=== PATIENT | female | born 1965 | race Caucasian/White ===

== ENCOUNTER 2018-03-24 16:15 | Emergency (ER) | payer SELFPAY ==
[~2018-03-24] VITALS: Ht 160 cm; Wt 72.6 kg
--- OUTSIDE RECORDS SUMMARY | 2018-03-24 16:18 | XMS REPORT ---
[facility] Address Unknown Phone Unavailable Care Team Providers Care Machine Assistant Name Role Phone ANGELIA MCWILLIAMS Unavailable Unavailable DR LUNA HUMPHREY Unavailable Unavailable DR Marlon SALETR Unavailable Unavailable Cris VELASQUEZ Unavailable Unavailable Payers Payer Name Policy Type Policy Number Effective Date Expiration Date Problems This patient has no known problems. Allergies, Adverse Reactions, Alerts Allergy Name Allergy Type Status Severity Reaction(s) Onset Date Inactive Date Treating Clinician Comments No Known Allergies DA Active U 2018-02-22 00:00:00 No Known Allergies DA Active U 2018-02-20 00:00:00 No Known Allergies DA Active U 2011-08-30 00:00:00 Medications This patient has no known medications. Encounters Start Date/Time End Date/Time Encounter Type Admission Type Attending Clinicians Care Facility Care Department Encounter ID 2016-12-10 08:30:00 Inpatient C ANGELIA MCWILLIAMS [facility] [id number] 2017-04-26 15:26:00 2017-04-26 16:04:00 Emergency E LUNA HUMPHREY [facility] [id number] Results Test Description Test Time Test Comments Text Results Atomic Results Result Comments COMPREHENSIVE METABOLIC STEWART 2017-01-30 13:11:00 GLUCOSE (test code=06D) 122 mg/dL 75-100 SODIUM (test code=01A) 141 mmol/L 136-145 POTASSIUM (test code=01B) 3.8 mmol/L 3.6-5.1 CHLORIDE (test code=04A) 105 mmol/L 98-107 CO2 (test code=02A) 31 mmol/L 22-32 ANION GAP (test code=ANG) 8.8 mmol/L BUN (test code=05D) 8 mg/dL 7-18 CREATININE (test code=03E) 0.8 mg/dL 0.4-1.1 BUN/CREA (test code=BCR) 10 12-20 CALCIUM (test code=09D) 9.2 mg/dL 8.3-9.5 BILI TOTAL (test code=11A) 0.3 mg/dL 0.2-1.0 PROTEIN (test code=07D) 7.4 g/dL 6.4-8.2 ALBUMIN (test code=08D) 4.1 g/dL 3.5-4.8 GLOBULIN (test code=GLB) 3.3 g/dL 1.5-3.8 ALB/GLOB (test code=AGRR) 1.2 1.0-2.6 ALK PHOS (test code=35A) 81 IU/L 42-121 AST (test code=30A) 13 IU/L <=42 ALT (test code=31A) 16 IU/L <=78 AMYLASE AND [id number] 13:07:00* Test Item Value Reference Range Comments AMYLASE (test code=10A) 59 U/L 28-100 LIPASE (test code=60A) 94 IU/L 73-393 CT STONE PROTOCOL [id number] 12:56:29CT ABDOMEN AND PELVIS WITHOUT CONTRAST, RENAL STONE PROTOCOL:Location code: [id number] HISTORY: Left flank painCOMPARISON: NoneTECHNIQUE: Helical CT of the abdomen and pelvis was performed withoutcontrast. Thin section axial, sagittal and coronal images were obtained. Oneor more of the following dose reduction techniques were used: Automatedexposure control, adjustment of the mA and or KV according to patient size,and/or utilization of iterative reconstruction technique. DLP: 68 mGy- cm.FINDINGS: Right-sided 3 mm nonobstructing stone noted. No evidence of left- sidednephrolithiasis. No obstruction or hydronephrosis.2 cm hypodense lesion seen in the right adrenal gland consistent with adenoma.Liver, spleen, pancreas, gallbladder, and left adrenal are unremarkable.The unopacified loops of bowel demonstrate no focal thickening or dilatation.No thickened appendix. There is no free intraperitoneal air or fluid. The abdominal aorta is normal in caliber and contour. There is noretroperitoneal adenopathy or mass. The urinary bladder is unremarkable.There is no pelvic mass or fluid collection. Mild degenerative changes are present throughout the spine. The skin andsurrounding soft tissues are unremarkable. IMPRESSION:2 cm likely right adrenal adenoma. Follow-up CT in 6 months recommended. MRImay be of further benefit.3 mm nonobstructing stone in the lower pole of the right kidney.CBC (INCLUDES AUTOMATED DIFFERENTIAL) 2017-01-30 12:53:00* Test Item Value Reference Range Comments WBC (test code=WBC) 6.9 10\S\3/uL 4.5-11.0 RBC (test code=RBC) 4.57 10\S\6/uL 4.20-5.60 HGB (test code=HBG) 15.2 g/dL 12.0-15.5 HCT (test code=HCT) 43.8 % 35.0-44.0 MCV (test code=MCV) 95.8 fL 81.0-99.0 MCH (test code=MCH) 33.3 pg 27.0-31.0 MCHC (test code=MCHC) 34.7 g/dL 32.0-36.0 RDW (test code=RDW) 14.5 % 11.5-14.5 PLT (test code=PLT) 281 10\S\3/uL 130-400 MPV (test code=MPV) 9.3 fL 9.4-12.4 NEUTROP # (test code=NE#) 4.7 10\S\3/uL 1.6-8.0 LYMPH # (test code=LY#) 1.7 10\S\3/uL 1.1-3.5 MONOCYTE # (test code=MO#) 0.3 10\S\3/uL 0.0-1.1 EOSINOPH # (test code=EO#) 0.2 10\S\3/uL 0.0-0.7 BASOPHIL # (test code=BA#) 0.0 10\S\3/uL 0.0-0.3 IG # (test code=IG#) 0.02 10\S\3/uL 0.00-0.06 NRBC # (test code=NRBC#) 0.00 10\S\3/uL 0.00-0.01 NEUTROPH % (test code=NE%) 68.2 % 35.0-73.0 LYMPH % (test code=LY%) 24.1 % 20.0-55.0 MONO % (test code=MO%) 4.4 % 2.5-10.0 EOSINOPH % (test code=EO%) 2.6 % 0.0-5.0 BASOPHIL % (test code=BA%) 0.4 % 0.0-2.0 IG % (test code=IG%) 0.3 % 0.0-0.8 NRBC% (test code=NRBC%) 0.0 % 0.0-0.2 MANDIFF (test code=MDIFF) NO NO RBC MORPH (test code=RBCMOR) NORMAL [id number] 12:53:00* Test Item Value Reference Range Comments COLOR (test code=COLU) YELLOW YELLOW CLARITY (test code=CLA) CLEAR CLEAR GLUCOSE UR (test code=UA GLUCOSE) NEGATIVE NEGATIVE BILI UR (test code=BILE) NEGATIVE NEGATIVE KETONES UR (test code=DONA) NEGATIVE NEGATIVE SP GRAVITY (test code=SPGR) 1.021 1.005-1.030 PH UR (test code=PH) 6.5 4.5-8.0 PROTEIN UR (test code=PU) NEGATIVE NEGATIVE UROBIL UR (test code=UROQ) 0.2 EU/dL 0.2-1.0 NITRITE UR (test code=NITRITE) NEGATIVE NEGATIVE BLOOD UR (test code=UA BLOOD) NEGATIVE NEGATIVE LEUK ES UR (test code=LEUK) NEGATIVE NEGATIVE XR RIBS BILAT 4VWS W/PA [id number] 11:34:47Exam: Bilateral RIBS with PA chestLocation: [id number]: fallFindings:Chest PA: The lungs are clear. No infiltrate or effusion is seen. The pulmonaryvasculature is normal. The heart size is normal. The mediastinal silhouette isunremarkable.Bilateral ribs: No rib fracture is seen. The bony cortices are intact. The softtissues are normal.Impression:Unremarkable exam.XR PELVIS AP 1 [id number] 11:32:49Exam: AP pelvis.Location: [id number]: fallFINDINGS: No significant bone or joint abnormality is seen. The bonycortices are intact. The joint spaces are well preserved. The soft tissuesare normal.Impression:Unremarkable exam.XR KNEE LEFT 3 [id number] 11:32:27Exam: Left knee 3 views AP, lateral and oblique.Location: [id number]: knee pain s/p fallFINDINGS: No significant bone or joint abnormality is seen. The bonycortices are intact. The joint spaces are well preserved. The soft tissuesare normal.Impression:Unremarkable exam.XR KNEE RIGHT 3 [id number] 11:32:12Exam: Right knee 3 views 3 views AP, lateral and oblique.Location: [id number]: knee pain s/p fallFINDINGS: No significant bone or joint abnormality is seen. The bonycortices are intact. The joint spaces are well preserved. The soft tissuesare normal.Impression:Unremarkable exam.CT CERVICAL SPINE W/O [id number] 11:26:45Exam: CT C-spine.Location: [id number]: fallTechnique: Unenhanced spiral slices were taken through the cervical spine.Sagittal and coronal reformations were performed. One or more of the followingradiation dose reduction techniques was used: automated exposure control,adjustment of mA and/or KV according to patient size, and/or utilization ofiterative reconstruction technique.Findings:No fracture or dislocation is seen. The bony cortices are intact. Changes ofspondylosis and osteoarthritis are present. Postoperative changes are seen atC4-C6. The vertebral bodies demonstrate normal heights and alignment. Thesurrounding soft tissues are normal.C1-C2: Unremarkable.C2-C3: A 2 mm posterior osteophyte-disc complex is present encroaching upon theventral canal. The neural foramina are patent.C3-C4: Postoperative changes are noted. No canal stenosis or foraminalnarrowing.C4-C5: Postoperative changes are noted. A 3 mm posterior osteophyte-disccomplex is present. No canal stenosis is seen. Facet hypertrophy is presentwith mild left neural foraminal narrowing.C5-C6: Postoperative changes are noted. No canal stenosis is seen. Facethypertrophy is present with mild bilateral neural foraminal narrowing.C6-C7: Postoperative changes are noted. No canal stenosis is seen. Facethypertrophy is present with moderate bilateral neural foraminal narrowing.C7-T1: No canal stenosis or foraminal narrowing.Impression:1. Spondylosis/osteoarthritis.2. Postoperative spine.3. Mild canal stenosis C3-C4.4. Bilateral neural foraminal narrowing.CT FACIAL W/O [id number] 11:22:57Exam: CT face without contrast.Location: [id number]: fall Technique: Unenhanced spiral slices were taken through the facial bones.Sagittal and coronal reformations were performed. One or more of the followingradiation dose reduction techniques was used: automated exposure control,adjustment of mA and/or KV according to patient size, and/or utilization ofiterative reconstruction technique.Findings:There is a very subtle lucency seen about the right nasal alae, suspicious fornondisplaced, nondepressed distal nasal alar fracture. No other facial fractureis seen. The remaining bony cortices are intact. The mandibular condyles residein the condylar fossae bilaterally. The orbits are intact.The globes are normal. The intra and extraconal spaces are unremarkable.The paranasal sinuses are clear.The soft tissues are normal.Impression:Findings suspicious for a nondisplaced, nond epressed hairline fracture of thedistal nasal alar fracture. CT HEAD W/O [id number] 11:13:17Exam: CT head without contrast.Location: [id number]: fallTechnique: Unenhanced spiral slices were taken from the base of the skull,through the vertex. One or more of the following radiation dose reductiontechniques was used: automated exposure control, adjustment of mA and/or KVaccording to patient size, and/or utilization of iterative reconstructiontechnique.Findings:No acute intracranial abnormality is identified. The brain parenchyma and theCSF spaces are unremarkable. No mass, midline shift, hemorrhage, hydrocephalusor edema is seen. The visualized pa ranasal sinuses are clear. The mastoid aircells are well pneumatized. The bony c alvarium is intact.Impression:No acute intracranial abnormality.DRUGS OF ABUSE 2016-11-16 11:13:00* Test Item Value Reference Range Comments DRUG SCRN (test code=HDOA) URINE DRUG SCREEN This is an unconfirmed screening result and should not be used for non-medical purposes CANNABINOD (test code=88C) Negative NEGATIVE AMPHETHETM (test code=84A) Negative NEGATIVE BENZODIAZP (test code=86A) Negative NEGATIVE BARBITURAT (test code=85A) POSITIVE NEGATIVE OPIATES (test code=92B) Negative NEGATIVE COCAINE (test code=87A) Negative NEGATIVE PHENCYCLID (test code=66A) Negative NEGATIVE METHADONE (test code=64A) Negative NEGATIVE DOAH (test code=DOAH) URINE DRUG SCREEN Cut-off values are as follows: Cannabinoids 50 ng/mL Cocaine 300 ng/mL Amphetamines 1000 ng/mL Phencyclidine 25 ng/mL Benzodiazepines 200 ng.mL Methadone 300 ng/mL Barbiturates 200 ng/mL Opiates 2000 ng/mL AMYLASE AND [id number] 11:12:00* Test Item Value Reference Range Comments AMYLASE (test code=10A) 85 U/L 28-100 LIPASE (test code=60A) 193 IU/L 73-393 COMPREHENSIVE METABOLIC [id number] 11:12:00* Test Item Value Reference Range Comments GLUCOSE (test code=06D) 88 mg/dL 75-100 SODIUM (test code=01A) 138 mmol/L 136-145 POTASSIUM (test code=01B) 5.1 mmol/L 3.6-5.1 CHLORIDE (test code=04A) 105 mmol/L 98-107 CO2 (test code=02A) 28 mmol/L 22-32 ANION GAP (test code=ANG) 10.1 mmol/L BUN (test code=05D) 8 mg/dL 7-18 CREATININE (test code=03E) 0.7 mg/dL 0.4-1.1 BUN/CREA R (test code=BCR) 12 12-20 CALCIUM (test code=09D) 8.6 mg/dL 8.3-9.5 BILI TOTAL (test code=11A) 0.2 mg/dL 0.2-1.0 PROTEIN (test code=07D) 6.8 g/dL 6.4-8.2 ALBUMIN (test code=08D) 3.2 g/dL 3.5-4.8 GLOBULIN (test code=GLB) 3.6 g/dL 1.5-3.8 ALB/GLOB (test code=AGRR) 0.9 1.0-2.6 ALK PHOS (test code=35A) 74 IU/L 42-121 AST (test code=30A) 23 IU/L <=42 ALT (test code=31A) 30 IU/L <=78 PRO TIME AND [id number] 11:04:00* Test Item Value Reference Range Comments PT (test code=TT) 9.2 s 9.8-13.6 INR (test code=INR) 0.8 INRH (test code=INRH) SUGGESTED THERAPEUTIC RANGE FOR INR: 2.5 - 3.5 For Patients with Prosthetic Valves or Patients with recurrent Thromboembolic Events 2.0 - 3.0 For Most Other Applications PTT (test code=PTT) 29.0 s 20.2-38.0 PTTH (test code=PTTH) To monitor the effectiveness of heparin, we offer the Anti-Xa (Heparin Assay). It can be used for either unfractinated or LMW Heparin. Order Code is ANTI-XA [id number] 11:01:00* Test Item Value Reference Range Comments COLOR (test code=COLU) YELLOW YELLOW CLARITY (test code=CLA) CLEAR CLEAR GLUCOSE UR (test code=UA GLUCOSE) NEGATIVE NEGATIVE BILI UR (test code=BILE) NEGATIVE NEGATIVE KETONES UR (test code=DONA) NEGATIVE NEGATIVE SP GRAVITY (test code=SPGR) 1.007 1.005-1.030 PH UR (test code=PH) 7.0 4.5-8.0 PROTEIN UR (test code=PU) NEGATIVE NEGATIVE UROBIL UR (test code=UROQ) 0.2 EU/dL 0.2-1.0 NITRITE UR (test code=NITRITE) NEGATIVE NEGATIVE BLOOD UR (test code=UA BLOOD) NEGATIVE NEGATIVE LEUK ES UR (test code=LEUK) NEGATIVE NEGATIVE CBC (INCLUDES AUTOMATED DIFFERENTIAL)2016-11-16 10:54:00* Test Item Value Reference Range Comments WBC (test code=WBC) 8.3 10\S\3/uL 4.5-11.0 RBC (test code=RBC) 4.26 10\S\6/uL 4.20-5.60 HGB (test code=HBG) 13.6 g/dL 12.0-15.5 HCT (test code=HCT) 40.9 % 35.0-44.0 MCV (test code=MCV) 96.0 fL 81.0-99.0 MCH (test code=MCH) 31.9 pg 27.0-31.0 MCHC (test code=MCHC) 33.3 g/dL 32.0-36.0 RDW (test code=RDW) 14.8 % 11.5-14.5 PLT (test code=PLT) 250 10\S\3/uL 130-400 MPV (test code=MPV) 9.4 fL 9.4-12.4 NEUTROP # (test code=NE#) 5.8 10\S\3/uL 1.6-8.0 LYMPH # (test code=LY#) 1.7 10\S\3/uL 1.1-3.5 MONOCYTE # (test code=MO#) 0.5 10\S\3/uL 0.0-1.1 EOSINOPH # (test code=EO#) 0.3 10\S\3/uL 0.0-0.7 BASOPHIL # (test code=BA#) 0.0 10\S\3/uL 0.0-0.3 IG # (test code=IG#) 0.03 10\S\3/uL 0.00-0.06 NRBC # (test code=NRBC#) 0.00 10\S\3/uL 0.00-0.01 NEUTROPH % (test code=NE%) 69.4 % 35.0-73.0 LYMPH % (test code=LY%) 20.4 % 20.0-55.0 MONO % (test code=MO%) 5.4 % 2.5-10.0 EOSINOPH % (test code=EO%) 3.9 % 0.0-5.0 BASOPHIL % (test code=BA%) 0.5 % 0.0-2.0 IG % (test code=IG%) 0.4 % 0.0-0.8 NRBC% (test code=NRBC%) 0.0 % 0.0-0.2 MANDIFF (test code=MDIFF) NO NO RBC MORPH (test code=RBCMOR) NORMAL
--- OUTSIDE RECORDS SUMMARY | 2018-03-24 16:18 | XMS REPORT | Clinical Summary ---
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 Disp. Refills Start End Date Status Date levETIRAcetam (KEPPRA) Take 500 mg by mouth 2 Active 500 MG tablet (two) times a day. omeprazole (PriLOSEC) 20 Take 20 mg by mouth 2 Active MG capsule (two) times a day. cyclobenzaprine Take 10 mg by mouth Active (FLEXERIL) 10 mg tablet daily. traMADol (ULTRAM) 50 mg Take 50 mg by mouth every Active tablet 6 (six) hours as needed for moderate pain or severe pain. traZODone (DESYREL) 100 Take 300 mg by mouth Active MG tablet nightly. tiotropium (SPIRIVA) 18 Place 1 capsule into Active mcg per inhalation inhaler and inhale once capsule daily. albuterol (PROAIR Inhale 2 puffs every 6 Active HFA,PROVENTIL (six) hours as needed for HFA,VENTOLIN HFA) 90 wheezing. mcg/actuation inhaler amitriptyline HCl Take by mouth nightly. Active (AMITRIPTYLINE ORAL) gabapentin (NEURONTIN) Take 600 mg by mouth Active 600 mg tablet nightly. escitalopram (LEXAPRO) 20 Take 20 mg by mouth every Active MG tablet morning. ibuprofen (ADVIL,MOTRIN) Take 200 mg by mouth Active 200 MG tablet every 6 (six) hours as needed for mild pain. buPROPion (WELLBUTRIN) 75 Take 150 mg by mouth 2 09/10/19 Discontin MG tablet (two) times a day. 18 ued varenicline (CHANTIX) 1 Take 1 mg by mouth 2 09/10/19 Discontin mg tablet (two) times a day. Take 18 ued with full glass of water. levETIRAcetam (KEPPRA) Take 1 tablet (500 mg 10 tablet 0 11/24/19 11/29/19 500 MG tablet total) by mouth 2 (two) 18 18 times a day for 5 days. Active Problems Problem Noted Date Opioid overdose (HCC) 11/11/2017 Weakness 09/08/2017 Encounters Date Type Specialty Care Team Description 11/23/2017 Emergency Emergency Medicine Waqar Domínguez MD Seizure (Primary Dx) Allison Chapman MD 11/11/2017 Hospital Emergency Medicine [facility] Opioid overdose, - Encounter MD Sean intentional self-harm, 11/12/2017 David Stephens DO initial encounter (Primary Dx) 09/08/2017 Emergency General Internal Medicine Allison Chapman MD Weakness (Primary Dx); - Celso Loza MD Shaking 09/09/2017 after 03/23/2017 Social History Tobacco Use Types Packs/Day Years Used Date Current Every Day Smoker Smokeless Tobacco: Never Used Alcohol Use Drinks/Week oz/Week Comments Yes former Sex Assigned at Date Recorded Not on file Last Filed Vital Signs Vital Sign Reading Time Taken Blood Pressure 135/85 11/23/2017 11:10 PM CDT Pulse 85 11/23/2017 11:10 PM CDT Temperature 36.7 C (98.1 F) 11/23/2017 11:10 PM CDT Respiratory Rate 17 11/23/2017 11:10 PM CDT Oxygen Saturation 93% 11/23/2017 11:10 PM CDT Inhaled Oxygen - - Concentration Weight 69.4 kg (153 lb) 11/23/2017 8:48 PM CDT Height 160 cm (5' 3") 11/23/2017 8:48 PM CDT Body Mass Index 27.1 11/23/2017 8:48 PM CDT Plan of Treatment Health Maintenance Due Date Last Done Comments CERVICAL CANCER SCREENING 12/16/1987 BREAST CANCER SCREENING 2016 COLON CANCER SCREENING 2016 SHINGRIX VACCINE (#1) 2016 INFLUENZA VACCINE 01/06/2018 Procedures Procedure Name Priority Date/Time Associated Diagnosis Comments URINALYSIS SCREEN AND STAT 11/23/2017 Results for this MICROSCOPY, WITH REFLEX 10:42 PM CDT procedure are in the TO CULTURE results section. CT CERVICAL SPINE WO STAT 11/23/2017 Results for this CONTRAST 10:15 PM CDT procedure are in the results section. CT HEAD WO CONTRAST STAT 11/23/2017 Results for this 10:15 PM CDT procedure are in the results section. ZZESTIMATED GFR STAT 11/23/2017 Results for this 9:35 PM CDT procedure are in the results section. HC COMPLETE BLD COUNT STAT 11/23/2017 Results for this W/AUTO DIFF 9:35 PM CDT procedure are in the results section. CREATINE KINASE, TOTAL STAT 11/23/2017 Results for this (CPK) 9:35 PM CDT procedure are in the results section. TROPONIN STAT 11/23/2017 Results for this 9:35 PM CDT procedure are in the results section. COMPREHENSIVE METABOLIC STAT 11/23/2017 Results for this PANEL 9:35 PM CDT procedure are in the results section. XR CHEST 1 VW PORTABLE STAT 11/23/2017 Results for this 9:12 PM CDT procedure are in the results section. ECG 12-LEAD STAT 11/23/2017 Results for this 8:51 PM CDT procedure are in the results section. ACETAMINOPHEN LEVEL Timed 11/11/2017 Results for this 9:49 PM CDT procedure are in the results section. SALICYLATE LEVEL Timed 11/11/2017 Results for this 9:49 PM CDT procedure are in the results section. ZZESTIMATED GFR Routine 11/11/2017 Results for this 7:25 PM CDT procedure are in the results section. THYROID STIMULATING Routine 11/11/2017 Results for this HORMONE 7:25 PM CDT procedure are in the results section. COMPREHENSIVE METABOLIC Routine 11/11/2017 Results for this PANEL 7:25 PM CDT procedure are in the results section. T4, FREE Routine 11/11/2017 Results for this 7:25 PM CDT procedure are in the results section. ALCOHOL LEVEL, BLOOD Routine 11/11/2017 Results for this 7:25 PM CDT procedure are in the results section. URINE DRUGS OF ABUSE STAT 11/11/2017 Results for this SCREEN 7:20 PM CDT procedure are in the results section. URINALYSIS SCREEN AND STAT 11/11/2017 Results for this MICROSCOPY, WITH REFLEX 7:20 PM CDT procedure are in the TO CULTURE results section. URINE CULTURE STAT 11/11/2017 Results for this 7:20 PM CDT procedure are in the results section. HC COMPLETE BLD COUNT STAT 11/11/2017 Results for this W/AUTO DIFF 6:41 PM CDT procedure are in the results section. ECG 12-LEAD STAT 11/11/2017 Results for this 6:34 PM CDT procedure are in the results section. ECG ED PRELIMINARY Routine 11/11/2017 Results for this INTERPRETATION 6:20 PM CDT procedure are in the results section. [place] [facility], E/M Routine 11/11/2017 Results for this 30-74 MINUTES 6:20 PM CDT procedure are in the results section. ZZESTIMATED GFR Routine 09/09/2017 Results for this 2:40 AM CDT procedure are in the results section. COMPREHENSIVE METABOLIC Routine 09/09/2017 Results for this PANEL 2:40 AM CDT procedure are in the results section. HC COMPLETE BLD COUNT Routine 09/09/2017 Results for this W/AUTO DIFF 2:40 AM CDT procedure are in the results section. LACTIC ACID LEVEL, SEPSIS Timed 09/09/2017 Results for this - NOW AND REPEAT 2X EVERY 2:40 AM CDT procedure are in the 3 HOURS results section. TROPONIN Timed 09/08/2017 Results for this 11:40 PM CDT procedure are in the results section. LACTIC ACID LEVEL, SEPSIS Timed 09/08/2017 Results for this - NOW AND REPEAT 2X EVERY 11:40 PM CDT procedure are in the 3 HOURS results section. ECG 12-LEAD STAT 09/08/2017 Results for this 9:17 PM CDT procedure are in the results section. URINE DRUGS OF ABUSE STAT 09/08/2017 Results for this SCREEN 8:54 PM CDT procedure are in the results section. URINALYSIS SCREEN AND Routine 09/08/2017 Results for this MICROSCOPY, WITH REFLEX 8:54 PM CDT procedure are in the TO CULTURE results section. URINE CULTURE Routine 09/08/2017 Results for this 8:54 PM CDT procedure are in the results section. ZZESTIMATED GFR STAT 09/08/2017 Results for this 8:51 PM CDT procedure are in the results section. PHOSPHORUS LEVEL STAT 09/08/2017 Results for this 8:51 PM CDT procedure are in the results section. MAGNESIUM LEVEL STAT 09/08/2017 Results for this 8:51 PM CDT procedure are in the results section. TROPONIN STAT 09/08/2017 Results for this 8:51 PM CDT procedure are in the results section. CREATINE KINASE, TOTAL STAT 09/08/2017 Results for this (CPK) 8:51 PM CDT procedure are in the results section. LIPASE LEVEL STAT 09/08/2017 Results for this 8:51 PM CDT procedure are in the results section. AMYLASE LEVEL STAT 09/08/2017 Results for this 8:51 PM CDT procedure are in the results section. LACTIC ACID LEVEL, SEPSIS STAT 09/08/2017 Results for this - NOW AND REPEAT 2X EVERY 8:51 PM CDT procedure are in the 3 HOURS results section. COMPREHENSIVE METABOLIC STAT 09/08/2017 Results for this PANEL 8:51 PM CDT procedure are in the results section. HC COMPLETE BLD COUNT STAT 09/08/2017 Results for this W/AUTO DIFF 8:51 PM CDT procedure are in the results section. XR CHEST 1 VW PORTABLE STAT 09/08/2017 Results for this 8:36 PM CDT procedure are in the results section. after 03/23/2017 Results * Urinalysis screen and microscopy, with reflex to culture (11/23/2017 10:42 PM) Only the most recent of 3 results within the time period is included. Specimen site Clean catch [facility] DEPARTMENT OF PATHOLOGY AND GENOMIC MEDICINE Color, UA Yellow [facility] DEPARTMENT OF PATHOLOGY AND GENOMIC MEDICINE Appearance, UA Clear [facility] DEPARTMENT OF PATHOLOGY AND GENOMIC MEDICINE Specific gravity, UA 1.006 1.001 - 1.035 [facility] DEPARTMENT OF PATHOLOGY AND GENOMIC MEDICINE pH, UA 7.0 5.0 - 8.5 [facility] DEPARTMENT OF PATHOLOGY AND GENOMIC MEDICINE Protein, UA Negative Negative [facility] DEPARTMENT OF PATHOLOGY AND GENOMIC MEDICINE Glucose, UA Negative Negative [facility] DEPARTMENT OF PATHOLOGY AND GENOMIC MEDICINE Ketones, UA Negative Negative [facility] DEPARTMENT OF PATHOLOGY AND GENOMIC MEDICINE Bilirubin, UA Negative Negative [facility] DEPARTMENT OF PATHOLOGY AND GENOMIC MEDICINE Blood, UA Negative Negative [facility] DEPARTMENT OF PATHOLOGY AND GENOMIC MEDICINE Nitrite, UA Negative Negative [facility] DEPARTMENT OF PATHOLOGY AND GENOMIC MEDICINE Urobilinogen, UA Negative <2.0 [facility] DEPARTMENT OF PATHOLOGY AND GENOMIC MEDICINE Leukocyte esterase, UA Negative Negative [facility] DEPARTMENT OF PATHOLOGY AND GENOMIC MEDICINE Epithelial cells, UA Few /HPF [facility] DEPARTMENT OF PATHOLOGY AND GENOMIC MEDICINE WBC, UA 0-5 0 - 4 /HPF [facility] DEPARTMENT OF PATHOLOGY AND GENOMIC MEDICINE RBC, UA 0-5 0 - 5 /HPF [facility] DEPARTMENT OF PATHOLOGY AND GENOMIC MEDICINE Bacteria, UA Trace None seen [facility] DEPARTMENT OF PATHOLOGY AND GENOMIC MEDICINE Yeast, UA None seen [facility] DEPARTMENT OF PATHOLOGY AND GENOMIC MEDICINE Yeast with pseudohyphae, None seen [facility] PATHOLOGY AND GENOMIC MEDICINE Specimen Urine Performing Organization Address City/State/Zipcode Phone Number [facility] [place] [address] [place] [address] PATHOLOGY AND GENOMIC MEDICINE * CT Cervical Spine Wo Contrast (11/23/2017 10:15 PM) Narrative Performed At EXAMINATION: CT CERVICAL SPINE WO CONTRAST [facility] CLINICAL HISTORY: neck pain after fall seizure COMPARISON:None TECHNIQUE: Axial noncontrast enhanced images of the cervical spine were obtained with coronal and sagittal reconstructed algorithms. CT imaging was performed with iterative reconstruction technique and/or automated exposure control to reduce radiation dose. FINDINGS: Status post laminotomy with left plate and screw fixation at C4-C6.No fracture. No subluxation. No suspicious osseous lesion. Straightening of normal cervical lordosis. There is asymmetric prominence of soft tissue in the right base of the tongue compared to the left. Axial images through the disc spaces demonstrate the following: C1-C2: No significant spinal canal stenosis. C2-C3: Ossification of the posterior longitudinal ligament indents the ventral thecal sac and abuts the ventral spinal cord, contributing to mild spinal canal stenosis. No significant neural foraminal stenosis. C3-C4: Ossification of the posterior longitudinal ligament small disc bulge indents the ventral spinal cord, contributing to mild narrowing of the thecal sac, despite decompressive laminotomy. There is mild left neural foraminal stenosis secondary to uncovertebral and facet arthropathy, without significant right neural foraminal stenosis. C4-C5: Ossification of the posterior longitudinal ligament and small disc bulge indents the ventral thecal sac and contribute to mild narrowing of the thecal sac, despite decompressive laminotomy. There is and moderate to severe left neural foraminal stenosis secondary to uncovertebral and facet arthropathy, and no significant right neural foraminal stenosis. C5-C6: Small disc bulge and uncovertebral osteophytes indent the ventral thecal sac, without significant narrowing. There is moderate left neural foraminal stenosis secondary to uncovertebral and facet arthropathy, without significant right neural foraminal stenosis. C6-C7: Moderate to severe right and moderate left neural foraminal stenosis secondary to uncovertebral and facet arthropathy. No significant spinal canal stenosis. C7-T1: Moderate left neural foraminal stenosis secondary to facet arthropathy and endplate osteophytes. No evidence of significant right neural foraminal or spinal canal stenosis. IMPRESSION: 1. No fracture or traumatic subluxation. 2. Postsurgical changes status post left laminotomy is with plates and screws C4-C6. 3. Multilevel degenerative changes of the cervical spine, with few levels of mild spinal canal and moderate or severe neural foraminal stenosis as above. [facility]-[id number] Procedure Note Interface, Radiology Results - 11/23/2017 10:26 PM CDT EXAMINATION: CT CERVICAL SPINE WO CONTRAST CLINICAL HISTORY: neck pain after fall seizure COMPARISON: None TECHNIQUE: Axial noncontrast enhanced images of the cervical spine were obtained with coronal and sagittal reconstructed algorithms. CT imaging was performed with iterative reconstruction technique and/or automated exposure control to reduce radiation dose. FINDINGS: Status post laminotomy with left plate and screw fixation at C4-C6.No fracture. No subluxation. No suspicious osseous lesion. Straightening of normal cervical lordosis. There is asymmetric prominence of soft tissue in the right base of the tongue compared to the left. Axial images through the disc spaces demonstrate the following: C1-C2: No significant spinal canal stenosis. C2-C3: Ossification of the posterior longitudinal ligament indents the ventral thecal sac and abuts the ventral spinal cord, contributing to mild spinal canal stenosis. No significant neural foraminal stenosis. C3-C4: Ossification of the posterior longitudinal ligament small disc bulge indents the ventral spinal cord, contributing to mild narrowing of the thecal sac, despite decompressive laminotomy. There is mild left neural foraminal stenosis secondary to uncovertebral and facet arthropathy, without significant right neural foraminal stenosis. C4-C5: Ossification of the posterior longitudinal ligament and small disc bulge indents the ventral thecal sac and contribute to mild narrowing of the thecal sac, despite decompressive laminotomy. There is and moderate to severe left neural foraminal stenosis secondary to uncovertebral and facet arthropathy, and no significant right neural foraminal stenosis. C5-C6: Small disc bulge and uncovertebral osteophytes indent the ventral thecal sac, without significant narrowing. There is moderate left neural foraminal stenosis secondary to uncovertebral and facet arthropathy, without significant right neural foraminal stenosis. C6-C7: Moderate to severe right and moderate left neural foraminal stenosis secondary to uncovertebral and facet arthropathy. No significant spinal canal stenosis. C7-T1: Moderate left neural foraminal stenosis secondary to facet arthropathy and endplate osteophytes. No evidence of significant right neural foraminal or spinal canal stenosis. IMPRESSION: 1. No fracture or traumatic subluxation. 2. Postsurgical changes status post left laminotomy is with plates and screws C4-C6. 3. Multilevel degenerative changes of the cervical spine, with few levels of mild spinal canal and moderate or severe neural foraminal stenosis as above. [facility]-[id number] Performing Organization Address City/State/Zipcode Phone Number [facility] [address] [place] [address] * CT Head Wo Contrast (11/23/2017 10:15 PM) Narrative Performed At EXAMINATION: CT HEAD WO CONTRAST [facility] CLINICAL HISTORY: seizurehead injury COMPARISON:None. TECHNIQUE: Noncontrast enhanced images of the brain were obtained from the skull base to the vertex. Both soft tissue and bone reconstruction algorithms were performed. CT scans are performed using radiation dose reduction techniques (iterative reconstruction and/or automated exposure control). Technical factors are evaluated and adjusted to ensure appropriate moderation of exposure. Automated dose management technology is applied to adjust radiation exposure while achieving a diagnostic quality image. FINDINGS: The brain parenchyma is unremarkable. The graham-white matter differentiation is preserved. No evidence of acute intra or extra-axial hemorrhage, mass, mass effect or acute territorial infarction. There is no acute hydrocephalus. Basal cisterns are patent. No acute soft tissue hematoma or laceration. No skull fractures or aggressive bony lesions. Paranasal sinuses and mastoid air cells are clear. Orbits are normal. IMPRESSION: No acute intracranial abnormality identified. [facility]-[id number] Procedure Note Interface, Radiology Results [facility] - 11/23/2017 10:25 PM CDT EXAMINATION: CT HEAD WO CONTRAST CLINICAL HISTORY: seizure head injury COMPARISON: None. TECHNIQUE: Noncontrast enhanced images of the brain were obtained from the skull base to the vertex. Both soft tissue and bone reconstruction algorithms were performed. CT scans are performed using radiation dose reduction techniques (iterative reconstruction and/or automated exposure control). Technical factors are evaluated and adjusted to ensure appropriate moderation of exposure. Automated dose management technology is applied to adjust radiation exposure while achieving a diagnostic quality image. FINDINGS: The brain parenchyma is unremarkable. The graham-white matter differentiation is preserved. No evidence of acute intra or extra-axial hemorrhage, mass, mass effect or acute territorial infarction. There is no acute hydrocephalus. Basal cisterns are patent. No acute soft tissue hematoma or laceration. No skull fractures or aggressive bony lesions. Paranasal sinuses and mastoid air cells are clear. Orbits are normal. IMPRESSION: No acute intracranial abnormality identified. [facility]-[id number] Performing Organization Address City/[facility]/Zipcode Phone Number [facility] [address] [place] [address] * Estimated GFR (11/23/2017 9:35 PM) Only the most recent of 4 results within the time period is included. GFR Non Af Amer 88 mL/min/1.73 m2 [facility] DEPARTMENT OF PATHOLOGY AND GENOMIC MEDICINE GFR Af Amer >90 mL/min/1.73 m2 [facility] DEPARTMENT OF Comment: PATHOLOGY AND Chronic kidney disease: <60 GENOMIC MEDICINE mL/min/1.73m2 Kidney failure: <15 mL/min/1.73m2 The estimated GFR is calculated from the IDMS-traceable Modification of Diet in Renal Disease Equation. The accuracy of the calculation is poor when the creatinine is normal. Calculated values >90 mL/min/1.73m2 are not reported. This equation has not been validated in children (<18 years), women, the elderly (>70 years), or ethnic groups other than Caucasians and Americans. Specimen Plasma specimen Performing Organization Address [facility] Phone Number [address] [place] [address] PATHOLOGY AND [employer] MEDICINE * Troponin (11/23/2017 9:35 PM) Only the most recent of 3 results within the time period is included. Troponin <0.300 0.000 - 0.300 ng/mL [facility] DEPARTMENT OF Comment: PATHOLOGY AND 0.30 - 1.49 GENOMIC MEDICINE ng/mlMay indicate increased risk of acute coronary syndrome. >=1.5 ng/ml Consistent with acute myocardial infarction. The diagnostic value of a single normal or non-diagnostic result is questionable.Serial samples at 2-6 hour intervals are required to rule out acute myocardial injury. Specimen Plasma specimen Performing Organization Address [facility] Phone Number [address] [place] [address] PATHOLOGY AND GENOMIC MEDICINE * CBC with platelet and differential (11/23/2017 9:35 PM) Only the most recent of 4 results within the time period is included. WBC 15.78 (H) 4.50 - 11.00 k/uL [facility] DEPARTMENT OF PATHOLOGY AND GENOMIC MEDICINE RBC 4.22 4.20 - 5.50 m/uL [facility] DEPARTMENT OF PATHOLOGY AND GENOMIC MEDICINE HGB 13.6 12.0 - 16.0 g/dL [facility] DEPARTMENT OF PATHOLOGY AND GENOMIC MEDICINE HCT 41.9 37.0 - 47.0 % [facility] DEPARTMENT OF PATHOLOGY AND GENOMIC MEDICINE MCV 99.3 82.0 - 100.0 fL [facility] DEPARTMENT OF PATHOLOGY AND GENOMIC MEDICINE MCH 32.2 27.0 - 34.0 pg [facility] DEPARTMENT OF PATHOLOGY AND GENOMIC MEDICINE MCHC 32.5 31.0 - 37.0 g/dL [facility] DEPARTMENT OF PATHOLOGY AND GENOMIC MEDICINE RDW - SD 54.8 37.0 - 55.0 fL [facility] DEPARTMENT OF PATHOLOGY AND GENOMIC MEDICINE MPV 8.7 (L) 8.8 - 13.2 fL [facility] DEPARTMENT OF PATHOLOGY AND GENOMIC MEDICINE Platelet count 301 150 - 400 k/uL [facility] DEPARTMENT OF PATHOLOGY AND GENOMIC MEDICINE Nucleated RBC 0.00 /100 WBC [facility] DEPARTMENT OF PATHOLOGY AND GENOMIC MEDICINE Neutrophils 82.8 (H) 39.0 - 69.0 % [facility] DEPARTMENT OF PATHOLOGY AND GENOMIC MEDICINE Lymphocytes 10.9 (L) 25.0 - 45.0 % [facility] DEPARTMENT OF PATHOLOGY AND GENOMIC MEDICINE Monocytes 3.7 0.0 - 10.0 % [facility] DEPARTMENT OF PATHOLOGY AND GENOMIC MEDICINE Eosinophils 1.6 0.0 - 5.0 % [facility] PATHOLOGY AND GENOMIC MEDICINE Basophils 0.2 0.0 - 1.0 % [facility] OF PATHOLOGY AND GENOMIC MEDICINE Specimen Blood Performing Organization Address City/State/Zipcode Phone Number [facility] [place] [address] [address] [place] [id number] [facility] * Creatine kinase, total (CPK) (11/23/2017 9:35 PM) Only the most recent of 2 results within the time period is included. Creatine kinase 811 (H) 26 - 192 U/L [facility] OF PATHOLOGY AND GENOMIC MEDICINE Specimen Plasma specimen Performing Organization Address City/[facility] Phone Number [facility] [place] [address] [place] [address] PATHOLOGY AND GENOMIC MEDICINE * Comprehensive metabolic panel (11/23/2017 9:35 PM) Only the most recent of 4 results within the time period is included. Sodium 134 (L) 135 - 148 mEq/L [facility] DEPARTMENT OF PATHOLOGY AND GENOMIC MEDICINE Potassium 5.7 (H) 3.5 - 5.0 mEq/L [facility] DEPARTMENT OF PATHOLOGY AND GENOMIC MEDICINE Chloride 96 (L) 98 - 112 mEq/L [facility] DEPARTMENT OF PATHOLOGY AND GENOMIC MEDICINE CO2 26 24 - 31 mEq/L [facility] DEPARTMENT OF PATHOLOGY AND GENOMIC MEDICINE Anion gap 12@ANIO 7 - 15 mEq/L [facility] DEPARTMENT OF PATHOLOGY AND GENOMIC MEDICINE BUN 6 6 - 20 mg/dL [facility] DEPARTMENT OF PATHOLOGY AND GENOMIC MEDICINE Creatinine 0.7 0.5 - 0.9 mg/dL [facility] DEPARTMENT OF PATHOLOGY AND GENOMIC MEDICINE Glucose 87 65 - 99 mg/dL [facility] DEPARTMENT OF PATHOLOGY AND GENOMIC MEDICINE Calcium 8.8 8.3 - 10.2 mg/dL [facility] DEPARTMENT OF PATHOLOGY AND GENOMIC MEDICINE Protein 7.0 6.3 - 8.3 g/dL [facility] DEPARTMENT OF Comment: PATHOLOGY AND [place] GENOMIC MEDICINE 4.6-7.0 g/dL 1 week 4.4-7.6 g/dL 7 months-1year 5.1-7.3 g/dL 1-2 years5.6-7 .5 g/dL >3 years6.0-8 .0 g/dL 18-150 6.3-8.3 g/dL Albumin 3.6 3.5 - 5.0 g/dL [facility] DEPARTMENT OF PATHOLOGY AND GENOMIC MEDICINE A/G ratio 1.1 0.7 - 3.8 [facility] DEPARTMENT OF PATHOLOGY AND GENOMIC MEDICINE Alkaline phosphatase 106 (H) 35 - 104 U/L [facility] DEPARTMENT OF PATHOLOGY AND GENOMIC MEDICINE AST 63 (H) 10 - 35 U/L [facility] DEPARTMENT OF PATHOLOGY AND GENOMIC MEDICINE ALT 39 5 - 50 U/L [facility] DEPARTMENT OF PATHOLOGY AND GENOMIC MEDICINE Total bilirubin 0.2 0.0 - 1.2 mg/dL [facility] DEPARTMENT OF PATHOLOGY AND GENOMIC MEDICINE Specimen Plasma specimen Performing Organization Address City/State/Zipcode Phone Number [address] [place] [address] PATHOLOGY AND GENOMIC MEDICINE * XR Chest 1 Vw Portable (11/23/2017 9:12 PM) Only the most recent of 2 results within the time period is included. Narrative Performed At Examination:XR CHEST 1 VW PORTABLE RADIANT Clinical History:seizurehead injury Comparison: None. Technique: Single frontal view of the chest is obtained. Findings: The lungs are free of infiltrate. The heart size is normal. No pleural effusion is seen. Impression: No active cardiopulmonary disease identified. [facility]-[id number] Procedure Note Hm Interface, Radiology Results Incoming - 11/23/2017 9:23 PM CDT Examination: XR CHEST 1 VW PORTABLE Clinical History: seizure head injury Comparison: None. Technique: Single frontal view of the chest is obtained. Findings: The lungs are free of infiltrate. The heart size is normal. No pleural effusion is seen. Impression: No active cardiopulmonary disease identified. [facility]-[id number] Performing Organization Address [facility] Phone Number [facility] [address] [place] [address] * ECG 12 lead (11/23/2017 8:51 PM) Only the most recent of 3 results within the time period is included. Ventricular rate 89 [facility] Atrial rate 89 [facility] [place] interval 158 [facility] QRSD interval 100 [facility] QT interval 382 [facility] QTC interval 464 [facility] P axis 1 71 [facility] QRS axis 1 74 [facility] T wave axis 53 [facility] EKG impression Normal sinus rhythm-Possible [facility] MUSE Left atrial enlargement-Possible Anterior infarct , age undetermined-Abnormal ECG-In automated comparison with ECG of 11-NOV-2017 18:34,-Nonspecific T wave abnormality has replaced inverted T waves in Inferior leads- Performing Organization Address [facility] Phone Number [facility] [employer] [address] [place] [address] * Acetaminophen level (11/11/2017 9:49 PM) Acetaminophen level <15.0 10.0 - 30.0 ug/mL [facility] DEPARTMENT OF Comment: PATHOLOGY AND Therapeutic GENOMIC MEDICINE 10-30 ug/mL Possible Toxicity 150-200 ug/mL Probable Toxicity >200 ug/mL Specimen Plasma specimen Performing Organization Address [facility] Phone Number [address] [place] [address] PATHOLOGY AND [facility] MEDICINE * Salicylate level (11/11/2017 9:49 PM) Salicylate 0.9 (L) 3.0 - 30.0 mg/dL [facility] DEPARTMENT OF PATHOLOGY AND GENOMIC MEDICINE Specimen Plasma specimen Performing Organization Address [facility] Phone Number [address] [place] [address] PATHOLOGY AND [facility] MED[facility] * Thyroid stimulating hormone (11/11/2017 7:25 PM) TSH 2.59 0.27 - 4.20 uIU/mL [facility] DEPARTMENT OF PATHOLOGY AND GENOMIC MEDICINE Specimen Plasma specimen Performing Organization Address [facility] Number [address] [place] [address] PATHOLOGY AND [facility] * T4, free (11/11/2017 7:25 PM) T4, free 1.14 0.90 - 1.70 ng/dL [facility] DEPARTMENT OF PATHOLOGY AND GENOMIC MEDICINE Specimen Plasma specimen Performing Organization Address [facility] Number [address] [place] [address] PATHOLOGY AND [facility] * Alcohol level, blood (11/11/2017 7:25 PM) Alcohol None Detected mg/dL [facility] DEPARTMENT OF Comment: PATHOLOGY AND Normal GENOMIC MEDICINE None Detected Legal Intoxication in [place]80 mg/dL (0.08%) - Whole Blood Toxic Concentration 200 mg/dL (0.2%) Potentially Fatal3 50 - 500 mg/dL (0.35 - 0.5%) Alcohol percent None Detected % [facility] DEPARTMENT OF PATHOLOGY AND GENOMIC MEDICINE Specimen Plasma specimen Performing Organization Address [facility] Number [address] [place] [address] PATHOLOGY AND [facility] * Urine drugs of abuse screen (11/11/2017 7:20 PM) Only the most recent of 2 results within the time period is included. Amphetamine screen, urine Negative [facility] DEPARTMENT OF PATHOLOGY AND GENOMIC MEDICINE Methamphetamine screen, Negative [facility] DEPARTMENT OF urine PATHOLOGY AND GENOMIC MEDICINE Barbiturate screen, urine Negative [facility] DEPARTMENT OF PATHOLOGY AND GENOMIC MEDICINE Benzodiazepine screen, Negative [facility] DEPARTMENT OF urine PATHOLOGY AND GENOMIC MEDICINE Cocaine screen, urine Negative [facility] DEPARTMENT OF PATHOLOGY AND GENOMIC MEDICINE Methadone screen, urine NT [facility] DEPARTMENT OF PATHOLOGY AND GENOMIC MEDICINE Opiates screen, urine Positive (A) [facility] DEPARTMENT OF PATHOLOGY AND GENOMIC MEDICINE Phencyclidine screen, Negative [facility] DEPARTMENT OF urine PATHOLOGY AND GENOMIC MEDICINE Cannabinoid screen, urine Negative [facility] DEPARTMENT OF PATHOLOGY AND GENOMIC MEDICINE Tricyclic screen, urine Positive (A) [facility] DEPARTMENT OF Comment: PATHOLOGY AND Drug screen minimum GENOMIC MEDICINE concentration of detectability Amphetamines 1000 ng/mL Methamphetamines 1000 ng/mL Barbiturates 300 ng/mL Benzodiazepines 300 ng/mL Cocaine 300 ng/mL Methadone 300 ng/mL Opiates 300 ng/mL Phencyclidine 25 ng/mL Cannabinoids 50 ng/mL Tricyclics 1000 ng/mL Negative test results indicates presumptive evidence of lack of clinically significant drug concentration in this urine specimen. Positive test results are presumptive evidence of clinically significant drug concentration in this urine specimen. Testing performed for medical purposes only. Specimen Urine Performing Organization Address [facility] Phone Number [facility] [id number] [place] [address] PATHOLOGY AND [facility] MEDICINE * Urine culture (11/11/2017 7:20 PM) Only the most recent of 2 results within the time period is included. Urine culture SEE COMMENTComment: [facility] DEPARTMENT OF Bacteriuria screen negative. PATHOLOGY AND [facility] MEDICINE Specimen Urine Performing Organization Address [facility] Phone Number [facility] [id number] [place], [place] [id number] PATHOLOGY AND GENOMIC MEDICINE * ECG ED Preliminary Interpretation - NOT AN ORDER (11/11/2017 6:20 PM) Narrative Performed At Dillon Moe MD 11/13/20176:42 AM ECG ED Preliminary Interpretation - Not an Order Performed by: DILLON MOE Authorized by: DILLON MOE ECG reviewed by ED Physician in the absence of a returned goods inspector: yes Interpretation: Interpretation: abnormal Rate: ECG rate:112 ECG rate assessment: tachycardic Rhythm: Rhythm: sinus tachycardia Ectopy: Ectopy: none QRS: QRS axis:Normal QRS intervals:Normal Conduction: Conduction: normal ST segments: ST segments:Normal T waves: T waves: inverted Inverted:III and aVF * CRITICAL CARE (11/11/2017 6:20 PM) Narrative Performed At Dillon Moe MD 11/13/20176:42 AM Critical Care Performed by: DILLON MOE Authorized by: DILLON MOE Critical care provider statement: Critical care time (minutes):45 Critical care time was exclusive of:Separately billable procedures and treating other patients Critical care was necessary to treat or prevent imminent or life-threatening deterioration of the following conditions:Toxidrome Critical care was time spent personally by me on the following activities:Development of treatment plan with patient or surrogate, discussions with consultants, discussions with primary provider, evaluation of patient's response to treatment, examination of patient, ordering and performing treatments and interventions, ordering and review of laboratory studies, pulse oximetry, re-evaluation of patient's condition and review of old charts * Lactic acid level, SEPSIS - Now and repeat 2x every 3 hours (09/09/2017 2:40 AM) Only the most recent of 3 results within the time period is included. Lactic acid 0.7 0.5 - 2.2 mmol/L [facility] DEPARTMENT OF PATHOLOGY AND GENOMIC MEDICINE Specimen Plasma specimen Performing Organization Address [facility] Phone Number [address] [place] [address] PATHOLOGY AND [employer] MEDICINE * Phosphorus level (09/08/2017 8:51 PM) Phosphorus 2.2 (L) 2.4 - 4.5 mg/dL [facility] DEPARTMENT OF PATHOLOGY AND GENOMIC MEDICINE Specimen Plasma specimen Performing Organization Address [facility] Phone Number [address] [place] [address] PATHOLOGY AND [employer] MEDICINE * Magnesium level (09/08/2017 8:51 PM) Magnesium 1.8 1.6 - 2.6 mg/dL [facility] DEPARTMENT OF PATHOLOGY AND GENOMIC MEDICINE Specimen Plasma specimen Performing Organization Address [facility] Phone Number [address] [place] [address] PATHOLOGY AND GENOMIC MEDICINE * Lipase level (09/08/2017 8:51 PM) Lipase 11 (L) 13 - 60 U/L [facility] DEPARTMENT OF PATHOLOGY AND GENOMIC MEDICINE Specimen Plasma specimen Performing Organization Address City/[facility] Phone Number [address] [place] [address] PATHOLOGY AND GENOMIC MEDICINE * Amylase level (09/08/2017 8:51 PM) Amylase 42 13 - 73 U/L [facility] DEPARTMENT OF PATHOLOGY AND GENOMIC MEDICINE Specimen Plasma specimen Performing Organization Address City/[facility] Phone Number [facility] DEPARTMENT OF [address] [place] [address] [place] [address] PATHOLOGY AND GENOMIC MEDICINE after 03/23/2017
[2018-03-24] MEDS ORDERED: KETOROLAC TROMETHAMINE 30 MG/ML VIAL IV STA (17:22)
[2018-03-24] MEDS ORDERED: KETOROLAC TROMETHAMINE 60 MG/2 ML VIAL ONE (17:29)
[2018-03-24] MEDS ORDERED: KETOROLAC TROMETHAMINE 60 MG/2 ML VIAL IM ONE (17:45)
[2018-03-24 18:00] LABS: BASOPHILS % 0.2 % (0.0-1.0); EOSINOPHILS # (AUTO) 0.3 (0.0-0.4); EOSINOPHILS % 2.1 % (0.0-6.0); HEMOGLOBIN 13.3 g/dL (12.0-16.0); LYMPHOCYTES # (AUTO) 2.1 (1.0-3.2); LYMPHOCYTES % 15.5 % (18.0-39.1); MEAN CORPUSCULAR HEMOGLOBIN 31.3 pg (28-32); MEAN CORPUSCULAR HGB CONC 33.3 g/dL (31-35); MEAN CORPUSCULAR VOLUME 94.1 fL (81-99); MONOCYTES # (AUTO) 0.6 (0.2-0.8); MONOCYTES % 4.6 % (4.4-11.3); NEUTROPHILS # (AUTO) 10.3 (2.1-6.9); NEUTROPHILS % 77.1 % (38.7-80.0); PLATELET COUNT 347 x10e3/uL (140-360); RED BLOOD COUNT 4.25 x10e6/uL (3.6-5.1); RED CELL DISTRIBUTION WIDTH 16.1 % (11.7-14.4)
--- NOTE | 2018-03-24 18:19 | Diagnostic Imaging Report ---
KNEE LEFT 1-2 VIEWS HISTORY: Fall, landed on both knees. Bruise of the left knee. COMPARISON: None available. FINDINGS: Bones: No acute displaced fracture. Osseous alignment is within normal limits. Joints: Mild patellar femoral compartment degenerative changes with osteophytosis. Soft tissues: Mild prepatellar soft tissue swelling. IMPRESSION: No acute osseous abnormality. Signed by: DR. Jan March MD on 03/24/2018 6:16 PM
[2018-03-24 18:32] LABS: ALANINE AMINOTRANSFERASE 15 IU/L (0-55); ALBUMIN 3.8 g/dL (3.5-5.0); ALBUMIN/GLOBULIN RATIO 1.1 (0.8-2.0); ALKALINE PHOSPHATASE 81 IU/L (40-150); ANION GAP 16.1 mmol/L (8-16); BLOOD UREA NITROGEN 12 mg/dL (7-26); BUN/CREATININE RATIO 14 (6-25); CALCIUM 10.3 mg/dL (8.4-10.2); CARBON DIOXIDE 26 mmol/L (22-29); CHLORIDE 102 mmol/L (98-107); CREATININE, SERUM 0.84 mg/dL (0.57-1.11); EST GLOMERULAR FILTRATION RATE > 60 ML/MIN (60-); GLUCOSE 81 mg/dL (74-118); MAGNESIUM 1.9 MG/DL (1.3-2.1); PHOSPHORUS 3.6 MG/DL (2.3-4.7); POTASSIUM 4.1 mmol/L (3.5-5.1); SODIUM 140 mmol/L (136-145)
[2018-03-24] MEDS ORDERED: TRAMADOL HCL 50 MG TAB PO ONE (18:45)
== END 2018-03-24 19:38 | disposition home or self-care (01) ==
LOC: ER 16:15
DX: S80.212A Abrasion, left knee, initial encounter (principal); S80.02XA Contusion of left knee, initial encounter; M25.462 Effusion, left knee; G40.909 Epilepsy, unspecified, not intractable, without status epilepticus
CPT/HCPCS: 36415; 73560; 80053; 82542; 83735; 84100; 85025; 93971; 99283; J1885

== ENCOUNTER 2022-04-27 08:04 | Emergency (ER) | payer MEDICARE ==
[~2022-04-27] VITALS: Ht 160 cm; Wt 79.4 kg
[2022-04-27] MEDS ORDERED: ONDANSETRON ODT4 MG PO (09:27)
== END 2022-04-27 09:32 | disposition home or self-care (01) ==
LOC: ER 08:08
DX: R06.00 Dyspnea, unspecified (principal); B34.9 Viral infection, unspecified; J44.9 Chronic obstructive pulmonary disease, unspecified; R05.9 Cough, unspecified; R19.7 Diarrhea, unspecified; K21.9 Gastro-esophageal reflux disease without esophagitis; G40.909 Epilepsy, unspecified, not intractable, without status epilepticus; Z20.822 Contact with and (suspected) exposure to COVID-19
CPT/HCPCS: 71045; 99283; U0002